=== PATIENT | female | born 1990 | race Caucasian/White ===

== ENCOUNTER 2017-06-09 20:48 | Emergency (ER) | payer SELFPAY ==
[2017-06-09] MEDS ORDERED: SULFAMETHOXAZOLE/TRIMETHOPRIM 800-160 MG TABLET PO ONE (22:44)
[2017-06-09] MEDS ORDERED: CEPHALEXIN 500 MG CAPSULE PO ONE (22:44)
--- NOTE | 2017-06-09 22:51 | ER Document Report ---
ED General - General Chief Complaint: Groin Pain Stated Complaint: LEFT ABDOMINAL PAIN Time Seen by Provider: 06/09/17 21:49 Notes: Patient is a 27-year-old female without past medical history who presents with 2 days of left inguinal lymphadenopathy as well as a rash on the left low back. Patient states that the inguinal lymphadenopathy started approximately 1 day prior to the rash. She states that since that time she has had an increasing dull, constant, throbbing pain to the left inguinal crease as well as a burning pain over the area of the rash to her left low back. She denies any history of similar symptoms in the past. She denies any fever, vomiting or constitutional symptoms. She denies any rashes or lesions to her left lower extremity. She feels the symptoms have been worsening since onset which prompted her to come to the emergency department. She has not seen a primary care doctor regarding today's concerns. TRAVEL OUTSIDE OF THE [place] IN LAST 30 DAYS: No Past Medical History - General Information source: Patient - Social History Smoking Status: Never Smoker Frequency of alcohol use: None Drug Abuse: None Lives with: Alone Family History: Reviewed & Not Pertinent Review of Systems - Review of Systems Notes: Constitutional: Negative for fever. HENT: Negative for sore throat. Eyes: Negative for visual changes. Cardiovascular: Negative for chest pain. Respiratory: Negative for shortness of breath. Gastrointestinal: Negative for abdominal pain, vomiting or diarrhea. Genitourinary: Negative for dysuria. Musculoskeletal: Negative for back pain. Skin: Positive for rash. Neurological: Negative for headaches, weakness or numbness. 10 point ROS negative except as marked above and in HPI. Physical Exam - Vital signs Vitals: Temp Pulse Resp BP Pulse Ox 98.8 F 100 16 113/76 99 06/09/17 21:00 06/09/17 21:00 06/09/17 21:00 06/09/17 21:00 06/09/17 21:00 Interpretation: Normal Notes: PHYSICAL EXAMINATION: GENERAL: Well-appearing, well-nourished and in no acute distress. HEAD: Atraumatic, normocephalic. EYES: Pupils equal round and reactive to light, extraocular movements intact, sclera anicteric, conjunctiva are normal. ENT: nares patent, oropharynx clear without exudates. Moderately dry mucous membranes. NECK: Normal range of motion, supple without lymphadenopathy LUNGS: Breath sounds clear to auscultation bilaterally and equal. No wheezes rales or rhonchi. HEART: Regular rate and rhythm without murmurs ABDOMEN: Soft, nontender, normoactive bowel sounds. No guarding, no rebound. No masses appreciated. EXTREMITIES: Normal range of motion, no pitting or edema. No cyanosis. NEUROLOGICAL: No focal neurological deficits. Moves all extremities spontaneously and on command. PSYCH: Normal mood, normal affect. SKIN: Warm, Dry, normal turgor, there is a 1 x 0.5 cm patch of erythema without any fluctuance or apparent fluid collection to the left low back toward the flank. There are several mobile, tender inguinal lymph nodes that are swollen on the left Course - Re-evaluation Re-evalutation: 06/09/17 22:44 Patient presents with an area of cellulitis on her left low back toward the flank with associated inguinal lymphadenopathy on the left side. She is otherwise very well in appearance, vitals within normal limits at the time of my assessment, in no distress, laughing and joking on examination. Although she does complain of some left lower abdominal pain it actually appears to be only present if I palpate the inguinal crease where there is multiple areas of soft, compressible and mobile lymph nodes. When I pull her pannus away from the inguinal crease and press to the left lower quadrant itself there is no pain. I suspect that the lymphadenopathy is reactive to the cellulitis in the left low back. Patient does not meet sepsis criteria, no indication for labs. I have started the patient on both trimethoprim sulfamethoxazole as well as cephalexin for staph and MRSA coverage as well as strep coverage. At this time will discharge with return precautions and follow-up recommendations. Verbal discharge instructions given a the bedside and opportunity for questions given. Medication warnings reviewed. Patient is in agreement with this plan and has verbalized understanding of return precautions and the need for primary care follow-up in the next 24-72 hours. - Vital Signs Vital signs: Temp Pulse Resp BP Pulse Ox 98.7 F 74 17 118/75 100 06/09/17 23:12 06/09/17 23:12 06/09/17 23:12 06/09/17 23:12 06/09/17 23:12 Discharge - Discharge Clinical Impression: Cellulitis of lower back, Inguinal lymphadenopathy Condition: Good Disposition: HOME, SELF-CARE Additional Instructions: The rash is likely due to infection of your skin. You need to take the antibiotics as prescribed. Do not stop even if the rash goes away until you have completed all the antibiotics. The area of redness was traced out here in the emergency department with a marking pen. You need to return to emergency department if the redness spreads outside of this area by more than 2 cm in any direction. You should also return if you develop fevers with temperature greater than 101, persistent vomiting, worsening pain, or have any other symptoms that are concerning to you. Prescriptions: Cephalexin Monohydrate [Keflex 500 mg Capsule] 500 mg PO Q6H 7 Days capsule Sulfamethoxazole/Trimethoprim [Bactrim Ds Tablet] 1 tab PO BID #14 tablet
[2017-06-09 23:13] VITALS: BP 118/75
== END 2017-06-09 23:13 | disposition home or self-care (01) ==
LOC: ER 20:48
DX: L03.312 Cellulitis of back [any part except buttock and flank] (principal); R59.0 Localized enlarged lymph nodes; R10.32 Left lower quadrant pain
CPT/HCPCS: 99283

== ENCOUNTER 2017-06-14 21:36 | Emergency (ER) | payer SELFPAY ==
--- NOTE | 2017-06-14 22:43 | ER Document Report ---
ED Skin Rash/Insect Bite/Abscs - General Chief Complaint: Skin Problem Stated Complaint: SIDE/BACK PAIN Time Seen by Provider: 06/14/17 22:39 Notes: The patient is a 27-year-old female who presents with 6 days of a rash on her left flank. She describes rash as a burning sensation. She was seen in the ER 5 days ago and started on Keflex and Bactrim for suspected cellulitis. She was told to return to the ER if the rash worsened she has any other concerns. She began to notice to spreading of the rash and worsening burning sensation yesterday. Patient denies fevers, hip pain, urinary symptoms, abdominal pain or any other rashes. TRAVEL OUTSIDE OF THE [place] IN LAST 30 DAYS: No Past Medical History - General Information source: Patient - Social History Smoking Status: Unknown if Ever Smoked Family History: Reviewed & Not Pertinent Renal/ Medical History: Denies: Hx Peritoneal Dialysis Review of Systems - Review of Systems Notes: REVIEW OF SYSTEMS: CONSTITUTIONAL: -fevers, -chills EENT: -eye pain, -difficulty swallowing, -nasal congestion CARDIOVASCULAR: -chest pain, -syncope. RESPIRATORY: -cough, -SOB GASTROINTESTINAL: -abdominal pain, -nausea, -vomiting, -diarrhea GENITOURINARY: -dysuria, -hematuria MUSCULOSKELETAL: -back pain, -neck pain SKIN: +rash on flank HEMATOLOGIC: -easy bruising or bleeding. LYMPHATIC: +swollen left inguinal lymph node NEUROLOGICAL: -altered mental status or loss of consciousness, -headache, - neurologic symptoms PSYCHIATRIC: -anxiety, -depression. ALL OTHER SYSTEMS REVIEWED AND NEGATIVE. Physical Exam - Vital signs Vitals: Temp Pulse Resp BP Pulse Ox 98.6 F 100 20 118/78 99 06/14/17 21:45 06/14/17 21:45 06/14/17 21:45 06/14/17 21:45 06/14/17 21:45 - Notes Notes: PHYSICAL EXAMINATION: GENERAL: Well-appearing, well-nourished and in no acute distress. HEAD: Atraumatic, normocephalic. EYES: Pupils equal round and reactive to light, extraocular movements intact, sclera anicteric, conjunctiva are normal. ENT: nares patent, oropharynx clear without exudates. Moist mucous membranes. NECK: Normal range of motion, supple without lymphadenopathy LUNGS: Breath sounds clear to auscultation bilaterally and equal. No wheezes rales or rhonchi. HEART: Regular rate and rhythm without murmurs ABDOMEN: Soft, nontender, normoactive bowel sounds. No guarding, no rebound. No masses appreciated. Single tender left inguinal lymphadenopathy. EXTREMITIES: Normal range of motion, no pitting or edema. No cyanosis. NEUROLOGICAL: Cranial nerves grossly intact. Normal speech, normal gait. Normal sensory and motor exams. PSYCH: Normal mood, normal affect. SKIN: Erythematous, vesicular rash in left L3 dermatone, tenderness over rash, no fluctuance Course - Re-evaluation Re-evalutation: Patient appears well and is afebrile. With the spreading of the rash in a left L3 dermatone despite antibiotics, suspect that the patient has shingles. Instructed her about using antivirals since there is worsening rash and for the past 24 hours. She does not have insurance, so will provide acyclovir, anti- inflammatories and Liberal for severe pain with primary care follow-up. Given very strict return precautions and she understands. - Vital Signs Vital signs: Temp Pulse Resp BP Pulse Ox 98.6 F 100 20 118/78 99 06/14/17 21:45 06/14/17 21:45 06/14/17 21:45 06/14/17 21:45 06/14/17 21:45 Discharge - Discharge Clinical Impression: Inguinal lymphadenopathy Shingles rash Qualifiers: Herpes zoster complications: without complications Qualified Code(s): B02.9 - Zoster without complications Condition: Stable Disposition: HOME, SELF-CARE Additional Instructions: Shingles You have shingles. Shingles is caused by the chicken pox virus, The virus has been surviving dormant in a nerve cell since you had chicken pox years ago. The virus has spread down a nerve root to reach the skin. Typically, an band-like area of pain and skin sensitivity develops, then small blisters erupt in the area. Shingles lasts two or three weeks, but sometimes leaves persistent pain. You are contagious -- you can give children chicken pox. But you can't give anyone shingles. Antiviral medicines (such as acyclovir or famciclovir) can help, but the rash usually worsens for about a week. Pain medication is often given if the area hurts. Antihistamines such as Benadryl may be necessary for itching if it does not respond to soda baths and calamine lotion. Sometimes cortisone medicine or nerve-block shots are necessary if pain is severe. If the area remains severely painful as the sores heal, or if you suspect an infection developing in the sores, see your doctor. Lymphadenopathy You have enlargement of lymph glands, called lymphadenopathy. Lymph glands filter tissue fluids. They help to fight infection. Most of the time, enlarged lymph glands are not serious. Lymph glands may react to a viral or bacterial infection by becoming swollen and painful. When the infection goes away, the glands shrink. Sometimes a lymph gland will remain enlarged for a long time after an infection. Occasionally, a lymph gland may be overwhelmed by infection and form an abscess. If an enlarged lymph gland has signs that are suspicious for tumor, the doctor will recommend a biopsy. A suspicious gland usually is NOT painful, grows very slowly, and is rock-hard to touch. See the doctor or return if there is increasing swelling and redness, high fever, difficulty breathing, or any other change for the worse. Prescriptions: Acyclovir 800 mg PO 5XD 7 Days tablet Hydrocodone/Acetaminophen [Liberal 5-325 mg Tablet] 1 tab PO Q6H PRN #8 tablet PRN Reason: Referrals: [facility] [Outside] - Follow up as needed
[2017-06-14] MEDS ORDERED: ACYCLOVIR 800 MG TABLET PO ONE (23:19)
[2017-06-14] MEDS ORDERED: LIDOCAINE 5% (700 MG) TRANSDERMAL ADH..PATCH TP ONE (23:19)
[2017-06-14] MEDS ORDERED: ACYCLOVIR 800 MG TABLET ONE (23:34)
[2017-06-14 23:48] VITALS: BP 111/72
== END 2017-06-14 23:48 | disposition home or self-care (01) ==
LOC: ER 21:36
DX: B02.9 Zoster without complications (principal); R59.0 Localized enlarged lymph nodes; L98.9 Disorder of the skin and subcutaneous tissue, unspecified
CPT/HCPCS: 99283; J3490